=== PATIENT | male | born 1960 | race Caucasian/White ===

== ENCOUNTER 2025-01-14 08:41 | Emergency (ER) | payer OTHER, SELFPAY ==
[2025-01-14 08:49] VITALS: BP 141/89
--- NOTE | 2025-01-14 10:09 | ED.GENMED ---
History of Present Illness
General
Chief Complaint: Male Genito-Urinary Symptoms
Time Seen by Provider: 01/14/25 10:08
History of Present Illness
History of Present Illness:
PAST MEDICAL HISTORY AND REVIEW OF OLD RECORDS
- The patient reportedly has history of bladder masses. However, no old records available for review in [facility]. I did review the ultrasound report from [facility] that showed 2 masses. Summarized below
Note:
CHIEF COMPLAINT(S)
Hematuria and urinary pressure.
HISTORY OF PRESENT ILLNESS
The patient is a 64-year-old male who presented to the emergency room with concerns of blood in the urine, also known as hematuria, which he first noticed on December 14. After the initial episode, he visited a primary care physician, where a urine
sample confirmed the presence of blood. The primary physician recommended an ultrasound, which was conducted at [place]. The ultrasound revealed two nodular masses within the urinary bladder measuring 8 millimeters each, with no evidence of
calculi or hydronephrosis. A urology consultation and CT urogram were recommended for further evaluation.
The patient has not yet seen a urologist, as the earliest available appointment is on May 22. He reports experiencing a sensation of pressure in the urinary region, which he described as persistent and likened to having performed significant
exertion.
The patient has been taking a baby aspirin prophylactically, as he has a history of a coronary stent placement from a previous event that occurred a long time ago.
PHYSICAL EXAM
General: Alert, no acute distress. Healthy appearing.
Skin: Warm, dry.
Head: Normocephalic, atraumatic.
Neck: Supple, trachea midline.
Eye, Ears, Nose, and Throat: Oral mucosa moist.
Cardiovascular: Normal peripheral perfusion, no edema.
Respiratory: Respirations are non-labored.
Gastrointestinal: Abdomen nondistended. Mild suprapubic tenderness
Back: Normal range of motion, normal alignment.
Musculoskeletal: Normal range of motion, normal strength.
Neurological: Alert and oriented to person, place, time, and situation. No focal neurological deficit observed.
Psychiatric: Cooperative, appropriate mood & affect.
PROBLEM LIST
Acute:
- Hematuria
- Nodular masses in urinary bladder
- Urinary pressure sensation
Chronic:
- History of coronary stent placement
PLAN
1. Proceed with a CT urogram for further evaluation of the bladder masses.
2. Refer to urology for a consultation to assess the nodular masses and consider possible interventions.
3. Hold aspirin
DIFFERENTIAL DIAGNOSIS
The Differential Diagnosis includes, in no particular order and is not limited to:
1. Bladder cancer
2. Benign prostatic hyperplasia
3. Bladder stones
4. Urinary tract infection
5. Urethral stricture
6. Traumatic injury to the urinary tract
7. Renal masses
8. Hemorrhagic cystitis
9. Glomerulonephritis
10. Coagulopathy-related hematuria
RADIOLOGY
- CT imaging obtained.
LABS
- White count, hemoglobin, and platelets are all normal
UPDATE
- I discussed case with Dr. Washington who agrees with CT with and without IV contrast.
CT concerning for bladder malignancy
Padmini recommends close outpatient follow-up and can likely see tomorrow
Patient to hold aspirin
Chronic appearing infrarenal aortic dissection suggested but no evidence of aneurysm�we gave info for Dr. Shearer for follow-up. He has no symptoms concerning for aortic dissection at this time and this is more likely an incidental finding.
01/14/25 - 10:[address] scan will be conducted to obtain a more detailed assessment than the ultrasound. The urologist will be notified once the CT scan results are available. The urine has appeared significantly bloodier than currently observed. The patient reports
tenderness upon palpation in the affected area but denies experiencing fever or other symptoms.
SUMMARY OF ENCOUNTER
The patient, a 64-year-old male, presented to the emergency department with complaints of blood in his urine. A CT scan was performed, and, similar to the previous ultrasound, it revealed two nodular masses within the bladder. The radiologist
suggested that these masses could potentially be malignant, but a biopsy is required for a definitive diagnosis. The patient has been on aspirin prophylaxis due to a history of right lower extremity arterial stent placement. It was recommended to
pause the aspirin until further evaluation by a urologist, as aspirin requires some time to clear from the system which is necessary for any potential intervention. The urgency of further evaluation and consultation with urology was emphasized, and
arrangements were made for an expedited appointment with Dr. Washington. The patient will be discharged with instructions and a copy of the CT report for the urology follow-up.
DISPOSITION
Discharge.
ASSESSMENT
The patient has hematuria with nodular bladder masses potentially suggesting malignancy. Aspirin usage is noted but to be paused for upcoming urologic evaluation.
PLAN
The patient is to follow up with Dr. Washington, the urologist, preferably on the next day. The patient is advised to pause his aspirin regimen until further evaluation by the urologist.
INDEPENDENT REVIEW OF LABS AND INTERPRETATION OF TESTS
My independent interpretation of the CT scan confirms the presence of two nodular masses within the bladder, which could be suggestive of a malignancy, agreeing with the radiologist�s interpretation.
PATIENT EDUCATION AND COUNSELING
The patient was informed about the findings from the CT scan and the possibility of a malignancy. The necessity of pausing aspirin due to safety considerations for potential procedures was discussed. Instructions to follow up with the urologist
promptly were provided.
FOLLOW-UP INSTRUCTIONS
The patient is instructed to schedule and attend an appointment with Dr. Washington, the urologist, as soon as possible, ideally the following day.
MEDICATION RECONCILIATION
The patients current aspirin regimen is to be paused until after the urologist consults and advises on further management.
MEDICAL DECISION MAKING
- Number and Complexity of Problems Addressed: Chronic conditions affecting care include a history of coronary stent placement. Differential diagnosis includes bladder cancer, benign prostatic hyperplasia, bladder stones, urinary tract infection,
urethral stricture, traumatic injury to the urinary tract, renal masses, hemorrhagic cystitis, glomerulonephritis, and coagulopathy-related hematuria.
- Data:
Category 1: My independent interpretation of the CT scan confirms the findings of bladder masses.
Category 3: Discussion of management with Dr. Washington, a urologist, to arrange expedited evaluation.
- Risk: Prescription medication was considered; the patient was advised to pause aspirin in preparation for urological evaluation and potential intervention.
DIAGNOSIS
- Hematuria (R31.9)
- Bladder masses, potential malignancy (R93.8)
Phy Exam
Physical Exam
Physical Exam:
See HPI
Course
Orders/Labs/Results
Orders:
Orders
01/14/25 10:19
CMP [Comprehensive Metabolic Panel] Urgent
Complete Blood Count/No Diff Urgent
01/14/25 10:21
CT Abd/pelvis W/wo Iv Cont Urgent
Comment:
Reason For Exam: gross hematuria; two bladder masses on recent US
01/14/25 11:11
Urinalysis Reflex To Culture Urgent
Date Specimen was Collected: 01/14/25
Time Specimen was Collected: 11:10
Urine Microscopic Reflex Cult Urgent
Urine Culture Urgent
KALANI Source: U
Specimen Description:
Date Specimen was Collected: 01/14/25
Time Specimen was Collected: 11:10
01/14/25 11:30
0.9% Sodium Chloride 1000 ml [Nss] 1,000 ml IV BOLUS
Abnormal Lab Results
01/14/25 01/14/25
10:19 11:11
RBC 4.50 L 10^6/uL
(4.70-6.10)
MCV 94.2 H fL
(80.0-94.0)
MCH 32.2 H pg
(27.0-31.0)
Chloride 109 H mmol/L
(98-107)
Urine Ketones 3+ A
(Negative)
Ur Occult Blood Reflex 4+ A
(Negative)
Leukocyte Esterase Rfl 1+ A
(Negative)
Urine RBC 7-10 A /HPF
(0-2)
Urine Bacteria (Reflex) Few A
(Negative)
Urine Albumin (Reflex) 2+ A
(Neg - Trace)
01/14/25 10:19
01/14/25 10:19
Vital Signs
Initial and Last Documented VS:
Initial Vital Signs
Temp Pulse Resp BP Pulse Ox
36.6 C 70 16 141/89 99
01/14/25 08:49 01/14/25 08:49 01/14/25 08:49 01/14/25 08:49 01/14/25 08:49
Last Documented Vital Signs
Temp Pulse Resp BP Pulse Ox
36.6 C 68 16 130/89 100
01/14/25 08:49 01/14/25 13:00 01/14/25 08:49 01/14/25 13:00 01/14/25 13:00
*Pulse Oximetry
SaO2: 99
Oxygen Mode of Delivery: Room air
Patient hypoxic: no
*Critical Care Note
Total Time (30-74mins, 75-104mins- exclusive of procedures): Not Applicable
ED Attending Note
-
Portions of this chart may have been created with voice recognition software.� Occasional wrong word or��sound alike� substitutions may have occurred due to the inherent limitations of voice recognition software.
Discharge Plan
Departure
Patient Disposition: Home (Routine Discharge)
Date of Disposition: 01/14/25
Time of Disposition: 12:29
Patient with high blood pressure during this ER visit?: Yes
Discharge Problem:
Mass of bladder
Instructions: Blood in the urine (hematuria) in adults, BLOOD PRESSURE
Referrals:
Dioni Kiran DO [Family Provider, Family Practice]
Doe Washington MD [Active, Urology]
Activity Restrictions/Additional Instructions:
We are concerned about the possibly of malignancy seen on the CAT scan of the abdomen and pelvis. Blood was seen on urinalysis. There was no definite sign of infection however urine culture would be pending. The radiologist also noted to 'short
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 Stop aspirin for now. I notified Dr. Washington of your CAT scan report. Call their
office today and let them know that I notified Dr. Washington and he wants you to be seen tomorrow at 3:30pm at the office. Call [phone].
Interventions
Interventions:
*Risk Screen - Suicide Last Done: 01/14/25 09:59
*General Assessment Last Done: 01/14/25 09:59
*Neglect/Abuse Screening Last Done: 01/14/25 09:59
*ED- Fall Risk Assessment Last Done: 01/14/25 09:59
*ED COVID-19 Vaccine History Last Done: 01/14/25 09:59
*Nursing Disposition Last Done: 01/14/25 13:00
ED-Male Genitourinary Assessment Last Done: 01/14/25 10:25
Discharge Date and Time
Discharge Date/Time: 01/14/25 13:00
Print Language: HUNGARIAN
[2025-01-14 10:20] VITALS: BMI 22.7
[2025-01-14 10:38] LABS: Hematocrit 42.4 % (39.0-52.0); Hemoglobin 14.5 g/dL (13.0-18.0); Mean Corp Hgb Conc. 34.2 g/dL (33.0-37.0); Mean Corpuscular Volume 94.2 fL (80.0-94.0); Platelet Count 192 10^3/uL (130-400); Red Cell Dist. Width 12.1 % (11.5-14.5)
[2025-01-14 11:00] VITALS: BP 134/74
[2025-01-14 11:04] LABS: ALT (SGPT) 22 U/L (0-50); AST (SGOT) 23 U/L (17-59); Albumin 4.9 g/dl (3.5-5.0); Alkaline Phosphatase 102 U/L (38-126); Blood Urea Nitrogen 20 mg/dl (9-20); Calcium 9.4 mg/dl (8.4-10.2); Carbon Dioxide 23 mmol/L (22-30); Chloride 109 mmol/L (98-107); Estimated Creatinine Clearance 78 ml/min; Glucose 92 mg/dl (70-99); Potassium 4.3 mmol/L (3.5-5.1); Sodium 141 mmol/L (135-145); Total Protein 7.1 g/dl (6.3-8.2); eGFR > 60.00
[2025-01-14 11:25] LABS: Urine Character Clear (Clear)
[2025-01-14] MEDS: NSS 1000 IV (11:35)
[2025-01-14 13:00] VITALS: BP 130/89
== END 2025-01-14 13:00 | disposition home or self-care (01) ==
LOC: EMR 08:41
PROVIDERS: EMERGENCY PHYSICIAN Emergency Medicine; FAMILY PHYSICIAN Family Medicine
DX: N32.9 Bladder disorder, unspecified (principal); Z95.5 Presence of coronary angioplasty implant and graft
CPT/HCPCS: 99284; 96360; 74178; 80053; 81003; 81015; 85027; 87086; Q9967

== ENCOUNTER 2025-01-24 06:28 | Day surgery (SDC) | payer OTHER, SELFPAY ==
[2025-01-21 14:28] VITALS: BMI 22.1
[2025-01-24] VITALS (10 sets, daily range): BP systolic 119–147; BP diastolic 73–82; BMI 22.1
[2025-01-24] MEDS: NORMOSOL-R/PLASMALYTE-A 1000 IV (09:23)
[2025-01-24] MEDS: SYRINGE NON-PUMP 50 ML IRRIG (11:36)
[2025-01-24] MEDS: SYRINGE NON-PUMP 50 MG IRRIG (11:36)
== END 2025-01-24 13:25 | disposition home or self-care (01) ==
LOC: SDS 06:28
PROVIDERS: ATTENDING PHYSICIAN Specialist; FAMILY PHYSICIAN Family Medicine
DX: C67.9 Malignant neoplasm of bladder, unspecified (principal); N32.89 Other specified disorders of bladder; R31.0 Gross hematuria
CPT/HCPCS: 52354; 52235; 36415; 88307; 93005; J9201

== ENCOUNTER 2025-06-04 06:12 | Day surgery (SDC) | payer OTHER, SELFPAY ==
[2025-05-20 09:39] LABS: Hematocrit 46.6 % (39.0-52.0); Hemoglobin 15.4 g/dL (13.0-18.0); Mean Corp Hgb Conc. 33.0 g/dL (33.0-37.0); Mean Corpuscular Volume 96.3 fL (80.0-94.0); Nucleated Red Blood Cells % 0 % (-); Platelet Count 230 10^3/uL (130-400); Red Cell Dist. Width 12.8 % (11.5-14.5)
[2025-05-20 10:01] LABS: ALT (SGPT) 36 U/L (0-50); AST (SGOT) 28 U/L (17-59); Albumin 4.9 g/dl (3.5-5.0); Alkaline Phosphatase 135 U/L (38-126); Blood Urea Nitrogen 19 mg/dl (9-20); Calcium 9.9 mg/dl (8.4-10.2); Carbon Dioxide 27 mmol/L (22-30); Chloride 108 mmol/L (98-107); Glucose 90 mg/dl (70-99); Potassium 5.4 mmol/L (3.5-5.1); Sodium 139 mmol/L (135-145); Total Protein 7.4 g/dl (6.3-8.2); eGFR > 60.00
[2025-06-04] VITALS (10 sets, daily range): BP systolic 118–145; BP diastolic 72–91; BMI 23.2
[2025-06-04] MEDS: NORMOSOL-R/PLASMALYTE-A 1000 IV (06:40)
[2025-06-04] MEDS: CYSVIEW KIT 100 MG INTRAVES (06:45)
== END 2025-06-04 11:00 | disposition home or self-care (01) ==
LOC: SDS 06:12
PROVIDERS: ATTENDING PHYSICIAN Specialist; FAMILY PHYSICIAN Family Medicine
DX: N30.90 Cystitis, unspecified without hematuria (principal); Z85.51 Personal history of malignant neoplasm of bladder
CPT/HCPCS: 52234; C9738; 36415; 80053; 85025; 88307; A9589